=== PATIENT | female | born 1985 | race African-American/Black ===

== ENCOUNTER 2024-05-20 17:22 | Inpatient (IN) | payer MEDICAID ==
[~2024-05-20] VITALS: Ht 170.2 cm; Wt 79.4 kg
[2024-05-20 17:56] LABS: BASOPHILS % 0.3 % (0.0-2.0); EOSINOPHILS % 0.7 % (0.0-5.0); HEMATOCRIT. 40.4 % (36.0-48.0); HEMOGLOBIN. 13.4 g/dL (12.0-16.0); LYMPHOCYTES % 26.1 % (20.0-50.0); MEAN CORPUSCULAR HEMOGLOBIN 29.5 pg (28.0-32.0); MEAN CORPUSCULAR HGB CONC 33.1 g/dL (31.0-37.0); MEAN CORPUSCULAR VOLUME 89.1 fL (81.0-99.0); MEAN PLATELET VOLUME 8.6 fl (7.4-10.4); MONOCYTES % 4.4 % (2.0-8.0); NEUTROPHILS % 68.5 % (40.0-76.0); PLATELET 292 x1000/uL (130-400); RED BLOOD CELL COUNT 4.54 mill/uL (4.2-5.4); RED CELL DISTRIBUTION WIDTH 13.7 % (11.6-14.6); WHITE BLOOD COUNT 12.7 x1000/uL (4.5-11.0)
[2024-05-20] MEDS: AZITHROMYCIN 500MG/250ML 250 ML IV STA (18:04)
[2024-05-20 18:06] LABS: CARBON DIOXIDE 27 mEq/L (21-32); CHLORIDE 101 mEq/L (98-107); SODIUM 143 mEq/L (136-145)
[2024-05-20 18:11] LABS: CREATININE 1.1 mg/dL (0.6-1.0)
[2024-05-20 18:12] LABS: GLUCOSE 187 mg/dL (70-105); UREA NITROGEN BLOOD 11 mg/dL (9-23)
[2024-05-20 18:13] LABS: ALANINE AMINOTRANSFERASE 513 IU/L (10-49); ALBUMIN 4.2 g/dL (3.2-4.8); ASPARTATE AMINOTRANSFERASE 446 IU/L (<34)
[2024-05-20 18:14] LABS: BILIRUBIN DIRECT 0.2 mg/dL (<=3.0); BILIRUBIN TOTAL 0.7 mg/dL (0.1-1.0); PROTEIN TOTAL 7.1 g/dL (6.0-8.3)
[2024-05-20 18:16] LABS: D-DIMER 10.8 mg/L FEU (<0.50); PARTIAL THROMBOPLASTIN TIME 24.3 sec (23.4-31.0); PROTHROMBIN TIME 11.4 sec (9.6-11.0)
[2024-05-20 18:18] LABS: ETHANOL BLOOD < 10 mg/dL (<10); TROPONIN I HIGH SENSITIVITY 180 ng/L (3.0-34)
[2024-05-20 18:19] LABS: POTASSIUM 2.1 mEq/L (3.5-5.1)
[2024-05-20 18:21] LABS: HCG SCREEN NEGATIVE
[2024-05-20] MEDS: KCL 20MEQ/100ML PREMIX 100 ML IV ONE ×2 (19:02→23:50)
[2024-05-20] MEDS: SODIUM CHLORIDE 0.9% 500 ML IV ONE (19:02)
[2024-05-20] MEDS: POTASSIUM CHLORIDE 20MEQ TABLET SR PO ONE (19:02)
[2024-05-20] MEDS: MAGNESIUM OXIDE 400MG TABLET PO SCH (19:11)
[2024-05-20] MEDS: CEFTRIAXONE 2GM/50ML 50 ML IV ONE (19:12)
[2024-05-20] MEDS ORDERED: ACETAMINOPHEN 325MG TABLET PO PRN ×2 (20:30)
[2024-05-20] MEDS ORDERED: DOCUSATE SODIUM 100MG CAPSULE PO PRN (20:30)
[2024-05-20] MEDS ORDERED: CLONIDINE 0.1MG TABLET PO PRN (20:30)
[2024-05-20] MEDS ORDERED: GUAIFENESIN 200MG/10ML SUGAR FREE UDC PO PRN (20:30)
[2024-05-20] MEDS ORDERED: ONDANSETRON HCL 4MG/2ML INJ IV PRN (20:30)
[2024-05-20] MEDS ORDERED: MAGNESIUM/ALUMINUM HYDROXIDE/SIMETHICONE 30ML UDC PO PRN (20:30)
[2024-05-20] MEDS ORDERED: IPRATROPIUM/ALBUTEROL 0.5-3(2.5)MG/3ML NEB HHN PRN (21:00)
[2024-05-20 21:19] LABS: TROPONIN I HIGH SENSITIVITY 1551 ng/L (3.0-34)
[2024-05-20] MEDS ORDERED: DEXTROSE 50% WATER 50ML SYRINGE IV PRN (21:45)
[2024-05-20 21:55] VITALS: PULSE 145; RESP 20; O2SAT 97
[2024-05-20 22:25] VITALS: O2SAT 99
[2024-05-20] MEDS: MIDAZOLAM 100MG/100ML PREMIX IV PRN (22:25)
[2024-05-20] MEDS: FENTANYL CITRATE 1,000 MCG in SODIUM CHLORIDE 0.9% 80 ML IV PRN (22:25)
[2024-05-20 22:30] VITALS: PULSE 136; RESP 20; O2SAT 100
[2024-05-20] MEDS: ETOMIDATE 2MG/ML 10ML VIAL IV ONE ×2 (22:43)
[2024-05-20] MEDS: SUCCINYLCHOLINE CHLORIDE 200MG/10ML IV ONE (22:43)
[2024-05-20] MEDS: CALCIUM CHLORIDE 1GM/10ML SYR IV ONE (22:44)
[2024-05-20] MEDS: SODIUM BICARBONATE 8.4% 50MEQ/50ML SYR IV ONE (22:44)
[2024-05-20] MEDS ORDERED: IPRATROPIUM/ALBUTEROL 0.5-3(2.5)MG/3ML NEB NEB PRN (22:45)
[2024-05-20] MEDS: ONDANSETRON HCL 4MG/2ML INJ IV ONE (22:50)
[2024-05-20] MEDS: SODIUM CHLORIDE 0.9% 1,000 ML IV SCH (22:50)
[2024-05-20 23:04] VITALS: PULSE 145; RESP 20; O2SAT 100
[2024-05-20] MEDS: AMIODARONE HCL 150 MG in DEXT 5% WATER 100 ML IV ONE (23:10)
[2024-05-20] MEDS ORDERED: AMIODARONE HCL 900 MG in DEXT 5% WATER 482 ML IV SCH (23:15)
[2024-05-20] MEDS: MAGNESIUM 2 G PREMIX 50 ML IV ONE (23:17)
[2024-05-20] MEDS: IOHEXOL-350 100 ML BOTTLE ONE (23:18)
[2024-05-20] MEDS ORDERED: PIPERACILLIN/TAZO 3.375G/100ML 100 ML IV SCH (23:30)
[2024-05-20] MEDS ORDERED: ENOXAPARIN 40MG/0.4ML SYR SUBCUT ONE (23:30)
[2024-05-20] MEDS ORDERED: PANTOPRAZOLE SODIUM 40 MG/VIAL IV SCH (23:30)
[2024-05-20 23:37] VITALS: PULSE 163; RESP 20; O2SAT 100
[2024-05-20] MEDS ORDERED: VANCOMYCIN 1.5GM/250ML IV NR (23:45)
[2024-05-21] VITALS (12 sets, daily range): BP systolic 0–144; BP diastolic 0–75; PULSE 0–144; RESP 0–20; TEMP 36.5; O2SAT 0–99
[2024-05-21] MEDS ORDERED: KCL 20MEQ/100ML PREMIX 100 ML IV ONE ×2
[2024-05-21] MEDS ORDERED: PIPERACILLIN/TAZO 3.375G/50ML IV SCH
[2024-05-21] MEDS: AMIODARONE 360MG/200ML 200 ML IV SCH (00:22)
[2024-05-21] MEDS: LIDOCAINE 2 GM IV PRN (00:25)
[2024-05-21] MEDS: KCL 20MEQ/100ML PREMIX 100 ML IV ONE ×2 (00:27)
[2024-05-21] MEDS ORDERED: PHENYLEPHRINE 50MG/250ML PMX 250 ML IV STA (00:41)
[2024-05-21] MEDS: PHENYLEPHRINE 50 MG in DEXT 5% WATER 245 ML IV STA (00:48)
[2024-05-21 01:24] LABS: CARBON DIOXIDE 27 mEq/L (21-32); CHLORIDE 100 mEq/L (98-107); SODIUM 143 mEq/L (136-145)
[2024-05-21 01:25] LABS: CALCIUM 11.3 mg/dL (8.7-10.4)
[2024-05-21 01:30] LABS: GLUCOSE 308 mg/dL (70-105); UREA NITROGEN BLOOD 14 mg/dL (9-23)
[2024-05-21 01:31] LABS: CREATININE 1.5 mg/dL (0.6-1.0)
[2024-05-21 01:32] LABS: PHOSPHORUS 5.5 mg/dL (2.5-4.9); POTASSIUM 2.3 mEq/L (3.5-5.1)
[2024-05-21 01:38] LABS: TROPONIN I HIGH SENSITIVITY 3409 ng/L (3.0-34)
[2024-05-21 01:39] LABS: BG BASE EXCESS -4.4 mmol/L (-2.0-3.0); BG CARBOXYHEMOGLOBIN 0.3 % (0.5-1.5); BG DEOXYHEMOGLOBIN 16.7 % (0.0-5.0); BG FRACTION INSPIRED OXYGEN 100; BG HCO3 ACT 22.2 mmol/L (21.0-28.0); BG OXYGEN SATURATION 83.2 % (94.0-98.0); BG PH 7.293 (7.350-7.450); BG PO2 53.8 mmHg (83.0-108.0); BG SAMPLE SITE RIGHT RADIAL; BG TOTAL HEMOGLOBIN 12.8 g/dL (12.0-16.0); BG TOTAL RESPIRATORY RATE 20 b/min; BG VENT MODE VENT - AC
[2024-05-21] MEDS: KCL 20MEQ/100ML PREMIX 100 ML IV SCH (01:45)
[2024-05-21] MEDS: ESMOLOL 2500MG PREMIX 250 ML IV PRN (02:58)
[2024-05-21] MEDS: PHENYLEPHRINE 50MG/250ML PMX 250 ML IV PRN (02:58)
[2024-05-21] MEDS ORDERED: HEPARIN BOLUS PRN aPTT <30 IV ×2 (03:15→03:16)
[2024-05-21] MEDS ORDERED: HEPARIN BOLUS PRN aPTT 30-44 IV ×2 (03:15→03:16)
[2024-05-21] MEDS ORDERED: HEPARIN 60 UNITS/KG BOLUS IV NR (03:15)
[2024-05-21] MEDS ORDERED: INSULIN LISPRO 100 UNITS/ML SUBCUT SCH (03:15)
[2024-05-21] MEDS ORDERED: HEPARIN 60 UNITS/KG BOLUS IV SCH (03:15)
[2024-05-21] MEDS ORDERED: HEPARIN 25,000 UNITS PREMIX 250 ML IV SCH ×2 (03:15)
[2024-05-21] MEDS ORDERED: DEXTROSE 50% WATER 50ML SYRINGE IV PRN (03:15)
[2024-05-21] MEDS ORDERED: EPINEPHRINE 10 MG in SODIUM CHLORIDE 0.9% 240 ML IV PRN (03:45)
[2024-05-21] MEDS ORDERED: POTASSIUM CHLORIDE 40 MEQ in SODIUM CHLORIDE 0.9% 1,000 ML IV SCH (05:30)
[2024-05-21] MEDS ORDERED: BLOOD SUGAR DIAGNOSTIC STRIP TEST SCH (07:30)
[2024-05-21] MEDS ORDERED: ENOXAPARIN 40MG/0.4ML SYR SUBCUT SCH (09:00)
[2024-05-21] MEDS ORDERED: CEFTRIAXONE 1GM/50ML 50 ML IV SCH (18:00)
[2024-05-21] MEDS ORDERED: AZITHROMYCIN 500MG/250ML 250 ML IV SCH (18:30)
[2024-05-21] MEDS ORDERED: ENOXAPARIN 80MG/0.8ML SYR SUBCUT SCH (23:00)
== END 2024-05-21 11:23 | DRG 720 ==
LOC: ER 17:22 → 5EST 05-21 01:48
PROVIDERS: ADMIT Internal Medicine; ATTEND Internal Medicine
PROC: 06HY33Z Insertion of Infusion Device into Lower Vein, Percutaneous Approach (ICD-10-PCS; principal; 2024-05-20)
PROC: 5A1935Z Respiratory Ventilation, Less than 24 Consecutive Hours (ICD-10-PCS; 2024-05-20)
PROC: B54BZZA Ultrasonography of Right Lower Extremity Veins, Guidance (ICD-10-PCS; 2024-05-20)
PROC: 0BH17EZ Insertion of Endotracheal Airway into Trachea, Via Natural or Artificial Opening (ICD-10-PCS; 2024-05-20)
PROC: 5A12012 Performance of Cardiac Output, Single, Manual (ICD-10-PCS; 2024-05-21)
DX: A41.9 Sepsis, unspecified organism (principal); J96.01 Acute respiratory failure with hypoxia; I46.9 Cardiac arrest, cause unspecified; K72.00 Acute and subacute hepatic failure without coma; R65.21 Severe sepsis with septic shock; G93.40 Encephalopathy, unspecified; E83.39 Other disorders of phosphorus metabolism; Z20.822 Contact with and (suspected) exposure to COVID-19; Z66 Do not resuscitate; I49.01 Ventricular fibrillation; E83.41 Hypermagnesemia; N17.9 Acute kidney failure, unspecified; E87.6 Hypokalemia; E87.20 Acidosis, unspecified; R73.9 Hyperglycemia, unspecified; R55 Syncope and collapse; I47.20 Ventricular tachycardia, unspecified; I49.3 Ventricular premature depolarization; Z88.5 Allergy status to narcotic agent; R74.01 Elevation of levels of liver transaminase levels
CPT/HCPCS: 31500; 36415; 36556; 36600; 71045; 71275; 80048; 80076; 80307; 80320; 80329; 82375; 82533; 82805; 82962; 83605; 83735; 83880; 84100; 84145; 84484; 84703; 85025; 85379; 87426; 87804; 92950; 92960; 93005; 94003; 99291; J0282; J0456; J0696; J1644; J2250; J2405; J3010; J3370; J3475; J3480; J3490; J7030; J7040; J7050; J7060; Q9967; G0480